=== PATIENT | female | born 1965 | race Caucasian/White ===

== ENCOUNTER 2025-03-20 09:08 | Outpatient (AMB) | payer BC, SELFPAY ==
--- NOTE | 2025-03-20 09:20 | A.OFFVIS_ITS ---
Intake Visit Reasons: 6m sz Allergies Penicillins Allergy (Unknown, Verified 03/20/25 09:25) Unknown prednisone Allergy (Unknown, Verified 03/20/25 09:25) Unknown Sulfa (Sulfonamide Antibiotics) Allergy (Unknown, Verified 03/20/25 09:25) Unknown Medication List - Last Reconciled 03/20/25 by Amber Agosto CNP divalproex (Depakote) 250 mg PO DAILY fenofibrate 54 mg PO DAILY hydrochlorothiazide 12.5 mg PO DAILY lisinopril 5 mg PO DAILY sertraline 25 mg PO DAILY HPI Comments Details: 60-year-old woman who started having passing out spells as a child and was not diagnosed for a while. At one time, she passed out [place] a [place] and after that, was diagnosed with seizures, and had one witnessed generalized seizure. She was previously treated by Dr. Hilario with Depakote (brand name) 250mg three times a day for over 30 years without any further episodes. She cannot tolerate generic Depakote because it causes significant side effects, including side effects and tremors. No family history of seizures. She was interested in slowing taper off medication. Depakote was reduced from three times a day to twice a day for 6 months starting in 04/2024, and then further reduced to once a day beginning in 09/2024. She was doing okay. She has been taking Depakote 250mg once a day since 09/2024 without any issues. No seizures or spells. Sleep was okay. She works as a CPA and cares for her father who lives with her. She was still interested in tapering off medication completely. [facility] Medical History (Updated 03/20/25 @ 09:22 by Amber Agosto CNP) Hyperlipidemia Hypertension Tremor Review of Systems Const Denies chills, Denies daytime sleepiness, Denies difficulty sleeping, Denies fatigue, Denies fever(s), Denies frequent falls, Denies headache(s), Denies increased appetite, Denies poor appetite, Denies snoring, Denies weakness, Denies weight gain and Denies weight loss Eyes Denies loss of vision ENT Denies vertigo, Denies dizziness, Denies headache(s) and Denies neck pain Card Denies chest pain at rest, Denies chest pain with activity, Denies syncope, Denies leg edema, Denies palpitations, Denies dyspnea and Denies dyspnea on exertion Resp Denies cough, Denies dyspnea, Denies dyspnea on exertion and Denies snoring GI Denies abdominal pain, Denies constipation, Denies heartburn, Denies diarrhea and Denies nausea Denies urinary frequency, Denies urinary incontinence and Denies urinary urgency Musc Denies abnormal gait, Denies back pain, Denies myalgias, Denies arthralgias, Denies neck pain, Denies numbness and Denies tingling Neuro Denies abnormal gait, Denies vertigo, Denies dizziness, Denies syncope, Denies frequent falls, Denies headache(s), Denies lack of coordination, Denies loss of vision, Denies memory loss, Denies numbness, Denies Other visual disturbances, Denies restless legs, Denies seizure-like activity, Denies tingling, Denies paresthesias, Denies tremor(s) and Denies weakness Psych Denies anxiety, Denies depression, Denies auditory hallucinations, Denies memory loss and Denies visual hallucinations Endo Denies fatigue and Denies palpitations Physical Exam Const Other: General Appearance:? normal, in no acute distress. Heart:? S1, S2 normal, no murmurs. Lungs:? clear anteriorly and posteriorly. Musculoskeletal:? normal. Extremities:? no edema. Psych:? alert, oriented, cognitive function intact, cooperative with exam. Neuro Other: Abnormal Neurological Findings:?none.? Mental Status: alert and oriented X 3. Normal attention, orientation, memory, and affect. Cranial Nerves: Pupils are equal, round, and reactive to light. External ocular muscles are intact. Visual neal are full, no ptosis. Face is symmetrical, no facial weakness or droop. Facial sensations are normal. Tongue protrudes in midline. Palate elevates symmetrically. Shoulder shrugging is normal Motor Examination: Normal muscle tone, bulk and strength. No atrophy or fascicu lations. No drift of the extended upper extremities. DTR 2+. Plantars are flexor. Sensory Exam: Normal light touch, temperature, pinprick, vibration, and joint- position sensations. Rhomberg sign is absent. Coordination: No ataxia. No titubation. Gait Exam: Within normal limits. Cerebellar Signs: [id number] is okay. Extrapyramidal System: No tremor, rigidity with normal facial expressions. No bradykinesia. No bradyphrenia. Normal arm swing and posture. No propulsion or retropulsion. Speech: Normal. Results Reviewed Results Reviewed: 03/30/24 EEG- WN Assessment & Plan Assessment & Plan (1) Seizure disorder: Code(s): G40.909 - Epilepsy, unspecified, not intractable, without status epilepticus Category: Medical Plan: She was taking Depakote 250mg 1 tablet daily since 09/2024 without any episodes. She was still interested in stopping medication completely. She has been seizure free for 30+ years. EEG ordered, as last EEG was 1 year ago in 03/2024. As long as EEG is okay, will stop Depakote - risk vs benefits reviewed, and advised to contact office for any new/worsening symptoms. Will contact patient once EEG done with results. Follow up in 4 months or sooner as needed. Orders: Orders EEG Routine Today G40.909 - Epilepsy, unspecified, not intractable, without status epilepticus Coding Level of Care Code Est Pt Level 4 (41596) Diagnoses Seizure disorder G40.909
--- OUTSIDE RECORDS SUMMARY | 2025-03-20 10:26 | XMS_ITS ---
Author Name [facility] Organization Unknown Care Team Organization Name Specialty Phone Email Start Date End Da te [facility] ORI BRENNAN Primary Care 02/10/2022 11/22/2023
--- OUTSIDE RECORDS SUMMARY | 2025-03-20 10:26 | XMS_ITS | Clinical Summary ---
Author Organization [facility] [address] [facility] lding Address [address] [facility] [place] [address] Phone Care Team Providers Care Ecosystem Ecology Professor Name Role Phone Brook Rachel MD Primary Care Prov ider Allergies Active Allergy Reactions Criticality Noted Date Comments Penicillins 11/27/2005 rash Sulfacetamide Sodium 11/27/2005 rash Medications divalproex (Depakote) [address] tablet tid Active LORazepam (ATIVAN) 0.5 mg tablet Take 1 tablet by mouth every 6 hours as needed for Anxiety for up to 7 days. 04/23/19 22 Active OMEGA-3 FATTY ACIDS-FISH OIL ORAL Take by mouth. Activ e multivitamin,the r and minerals (VITAMINS AND MINERALS ORAL) qd Activ e hydroCHLOROthiaz rose (HYDRODIURIL) 25 mg tabletIndication s:Primary hypertension Take 0.5 tablets (12.5 mg total) by mouth 1 (one) time each day. 45 each 1 09/12/19 25 Active fenofibrate (LOFIBRA) 54 mg tabletIndication s:Pure hypercholesterol emia, unspecified TAKE 1 TABLET BY MOUTH EVERY DAY 90 tablet 1 12/19/19 25 Active sertraline (Zoloft) 25 mg tablet Take 1 tablet (25 mg total) by mouth 1 (one) time each day. 30 each 3 03/14/20 25 Active lisinopriL (PRINIVIL,ZESTRI L) 5 mg tablet Take 1 tablet (5 mg total) by mouth 1 (one) time each day. 90 each 1 03/14/20 25 Active albuterol HFA (PROAIR HFA ; PROVENTIL HFA ; VENTOLIN HFA) 90 mcg/actuation inhaler Take 2 Puffs by mouth every 6 hours as needed for Cough or Wheezing. 03/01/20 19 Discontin ued(Thera py completed ) CALCIUM CITRATE-VITAMIN D3 ORAL Take by mouth. Discontin ued(Thera py completed ) traZODone (DESYREL) 50 mg tablet Take 0.5-1 Tablets by mouth at bedtime as needed for Sleep for up to 28 days. 09/09/19 Discontin ued(Thera py completed ) azelastine (ASTELIN) 137 mcg (0.1 %) nasal spray Administer 1 spray into each nostril 2 (two) times a day. Use in each nostril as directed 30 mL 12 03/13/20 24 Discontin ued(Thera py completed ) polyethylene glycol (Golytely) 236-22.74-6.74 -5.86 gram solution Take 4L by mouth once for one dose. May substitue any PEG. Starting at 2PM the day before your procedure drink 1 8oz glasses at your own pace until you complete half of the gallon. Finish 2nd half of the gallon at 8PM. 4000 mL 11/11/19 25 025 Discontin ued(Thera py completed ) bisacodyL (DULCOLAX) 5 mg EC tablet Take 2 tablets by mouth right before beginning bowel prep. See instructions provided by the office 2 tablet 11/11/19 25 Discontin ued(Thera py completed ) lisinopriL (PRINIVIL,ZESTRI L) 10 mg tablet TAKE 1 TABLET BY MOUTH EVERY DAY 90 tablet 1 12/19/19 25 Discontin ued(Reord er) Active Problems Problem Noted Date Diagnosed Date Simple chronic bronchitis 02/24/2017 Pure hypercholesterolemia 02/20/2008 Elevated glucose 10/24/2007 Essential hypertension, benign 07/22/2006 Obesity, unspecified 11/27/2005 Seizure disorder 11/27/2005 Overview (02/01/2024): Sulaiman yearly Encounters Date Type Department Care Team Description 03/14/2025 9:30 AM EST Office Visit Adult Medicine [place] [address] [place] [address] Brook Holman MD Situational depression (Primary Dx); Essential hypertension, benign; Seizure disorder ([facility] V24, [facility] V28) from Last 3 Months Immunizations Immunization Administration Dates Next Due Influenza Quadravalent, MDCK , 0.5ml, preservative free (Flucelvax) 6mo and older 01/13/2022 Influenza Quadravalent, MDCK , 0.5ml, with preservative (Flucelvax) 6mo and older 01/27/2017 Influenza trivalent, 0.5mL ( Fluad) 65yo and older 01/12/2021 Influenza trivalent, 0.5mL, preservative free (Fluarix; FluLaval; Fluzone) ages 6mo and older (Afluria) 3 years and older 02/12/2024,11/26/2019,01/08/2018,02/23,02/04/2015,12/19/2012,01/22/2012 ,12/15/2010,02/20/2008 Influenza trivalent, MDCK, 0 .5mL, preservative free (Flucelvax) 6mo and older 01/20/2025 [employer] Covid-19 Bivalent, Or iginal + Ba.1 (Non-US Trademark COMIRNATY Bivalent) 02/02/2022 [employer] SARS-CoV-2 COVID-19, mRNA, LNP-S, preservative free 01/12/2021,06/18/2020,05/26/2020 Pneumococcal polysaccharide 23 valent (Pneumovax 23) 2yo and older 02/24/2017 Td Tetanus diptheria (Tdvax) 7yo and older 11/27/2005 Tdap Tetanus diptheria acell ular pertussis (Boostrix; Adacel) 7yo and older 02/28/2018 Zoster Live 02/17/2020 Zoster, Unspecified 04/05/2020 Medical History Medical History Date Comments Other convulsions 11/27/2005 DX:Other convu lsions Obesity, unspecified 11/27/2005 DX:Obesity, unspecified Hypertension Hyperlipidemia Family History Medical History Relation Name Comments CABG Father Heart attack Father Hyperlipidemia Father Hypertension Father Other cancer Father kidney cancer Diabetes Maternal Grandmother Breast cancer Mother 66 Relation Name Status Comments Father Maternal Grandmother Mother Social History Tobacco Use Types Packs/Day Years Used Date Smoking Tobacco: Never Smokeless Tobacco: Never Tobacco Cessation:Counseling Given: Not Answered Alcohol Use Standard Drinks/Week Comments No 0 (1 standard drink = 0.6 oz pur e alcohol) Housing Instability Answer Date Recorde d Are you worried that in the next 2 months you may not have stable housing? Patient declined 09/05/2024 Food Access & Nutrition Answer Date Rec orded Do you have access to a vari ety of food including fruits and vegetables? Patient declined 09/05/2024 Access to Healthcare Answer Date Record ed Within the last 3 months, ho jan many times did you visit the emergency department for your medical care? 0 09/05/2024 Health Literacy Answer Date Recorded How often do you need to hav e someone help you when you read instructions, pamphlets, or other written material from your doctor or pharmacy? Patient declined 09/05/2024 Caregiver: How often do you need to have someone help you when you read instructions, pamphlets, or other written material from your doctor or pharmacy? Not on file 025 Financial Risk Answer Date Recorded How hard is it for you to pa y for the very basics like food, housing, medical care, and air conditioning / heating? Patient declined 09/05/2024 Transportation Answer Date Recorded Has the lack of transportati on kept you from meetings, work, or from getting things needed for daily living? Patient declined 09/05/2024 Has the lack of transportati on kept you from medical appointments or from getting medications? Patient declined 09/05/2024 Social Isolation Answer Date Recorded How often do you feel lonely or isolated from those around you? Patient declined 09/05/2024 Food Risk Answer Date Recorded Within the past 12 months we worried whether our food would run out before we got money to buy more. Patient declined 025 Within the past 12 months th e food we bought just didn't last and we didn't have money to get more. Patient declined 06/2024 Dependent Care Answer Date Recorded Do you need help finding or paying for care for your loved ones. For example, child care associate teacher or elderly care for an older adult? Patient declined 09/05/2024 Education Answer Date Recorded Do you think completing more education or training, like finishing a GED, going to college, or learning a trade, would be helpful for you? Patient declined 09/05/2024 Employment and Income Answer Date Recor ded During the last four weeks, have you been actively looking for work? Patient declined 09/05/2024 Living Situation Answer Date Recorded What is your living situation? Unrecognized valu e 09/05/2024 Interpersonal Safety Answer Date Record ed Physical Abuse Unrecognized value 11/24/2024 Verbal Abuse Unrecognized value 11/24/2024 Comments No Sex and Gender Information Value Date Recorded Sex Assigned at Not on file Legal Sex Female 9:50 PM EST Gender Identity Not on file Sexual Orientation Not on file Last Filed Vital Signs Vital Sign Reading Time Taken Comments Blood Pressure 108/66 03/14/2025 9:27 AM EST Pulse 56 03/14/2025 9:27 AM EST Temperature 36.2 C (97.2 F) 11/24/2024 12:30 PM EDT Respiratory Rate 12 11/24/2024 12:50 PM EDT Oxygen Saturation 98% 11/24/2024 12:50 PM EDT Inhaled Oxygen Concentration - - Weight 69.2 kg (152 lb 9.6 oz) 03/14/2025 9:27 A M EST Height 149.9 cm (4' 11 ) 03/14/2025 9:27 AM EST Body Mass Index 30.82 03/14/2025 9:27 AM EST Plan of Treatment Upcoming Encounters Date Type Department Care Team (Late st Contact Info) Description 04/25/2025 9:30 AM EST Office Visit Adult Medicine - [place] [address] [place] [phone] Brook Rachel MD [address] [place] [address] Health Maintenance Due Date Last Done Comments Breast Cancer Screening 1965 Drug Screen 1965 Non-Opioid Controlled Substance Agreement 1965 Pneumococcal Vaccine: 50+ Years (2 of 2 - PCV) 02/24/2018 02/24/2017 COVID-19 Vaccine (6 - season) 2024 02/12/2024, 01/25/2023, 01/12/2021, Additional history exists Hypertension/CHF/CAD Annual BMP Blood Test 03/22/2025 03/22/2024, 09/03/2023, 09/03/2023 Cervical Cancer Screening: HPV 2027 2022 DTaP,Tdap,and Td Vaccines (3 - Td or Tdap) 02/29/2028 02/28/2018, 11/27/2005 Cholesterol Screening (Lipid Panel) 03/22/2029 03/22/2024, 09/03/2023, 09/03/2023 Colorectal Cancer Screening: Colonoscopy 11/24/2034 11/24/2024, 04/05/2014 RSV Immunization Adult Patients (1 - 1-dose 75+ series) 2038 Hepatitis C Screening Completed 07/22/2012 Zoster Vaccines Completed 04/05/2020, 02/03, 12/02/2019 Social Influencers of Health Screening Discontinued 09/05/2024 Influenza Vaccine Completed 01/20/2025, , 01/25/2023, Additional history exists Depression Screening Completed 03/14/2025 HIB Vaccines Aged Out No longer eligi ble based on patient's age to complete this topic HIV Screening Discontinued HPV Vaccines Aged Out No longer eligi ble based on patient's age to complete this topic Hepatitis A Vaccines Aged Out No long er eligible based on patient's age to complete this topic Hepatitis B Vaccines Aged Out No long er eligible based on patient's age to complete this topic IPV Vaccines Aged Out No longer eligi ble based on patient's age to complete this topic MMR Vaccines Aged Out No longer eligi ble based on patient's age to complete this topic Meningococcal ACWY Vaccine Aged Out N o longer eligible based on patient's age to complete this topic Meningococcal B Vaccine Aged Out No l onger eligible based on patient's age to complete this topic RSV Immunization Patients Under 20 months Aged Out No longer eligible based on patient's age to complete this topic Varicella Vaccines Aged Out No longer eligible based on patient's age to complete this topic Procedures Procedure Name Priority Date/Time Associated Diagnosis Comments COLONOSCOPY Routine 11/24/2024 12:29 PM EDT Colon cancer screening COMPREHENSIVE METABOLIC PANEL Routine 03/22/2024 8:35 AM EST Pure hypercholesterolemia LIPID PANEL WITH REFLEX TO DIRECT LDL Routine 03/22/2024 8:35 AM EST Pure hypercholesterolemia HM HPV Routine 2022 HEPATITIS C SCREENING Routine 07/22/2012 from Last 3 Months or Most Recently Relevant to Health Maintenance Results * COLONOSCOPY Anesthesia - MAC; [facility] ENDOSCOPY (11/24/2024 12:29 PM EDT) Anatomical Region Laterality Modality Endoscopy 11/24/2024 12:0 5 PM EDT Impressions 11/24/2024 12:29 PM EDT - The examined portion of the ileum was normal. - Internal hemorrhoids. - The entire examined colon is normal. - No specimens collected. Recommendation: - Repeat colonoscopy in 10 years for screening purposes. Narrative 11/24/2024 12:29 PM EDT [facility] Patient Name: Jerome Verdugo Procedure Date: 11/24/2024 12:05 PM Date of : 1965 Age: 59 Gender: Female Note Status: Finalized Attending MD: Vicki Merritt MD, Procedure Date No Time: 11/24/2024 Procedure: Colonoscopy Indications: Screening for colorectal malignant neoplasm Providers: Vicki Merritt MD Referring MD: Brook Rachel MD Medicines: Propofol per Anesthesia Complications: No immediate complications. Estimated Blood Loss: Estimated blood loss: none. Procedure: Pre-Anesthesia Assessment: - ASA Grade Assessment: II - A patient with mild systemic disease. After I obtained informed consent, the scope was passed under direct vision. Throughout the procedure, the patient's blood pressure, pulse, and oxygen saturations were monitored continuously.The Colonoscope was introduced through the anus and advanced to the terminal ileum. The colonoscopy was performed without difficulty. The patient tolerated the procedure well. The quality of the bowel preparation was excellent. Findings: The perianal and digital rectal examinations were normal. The terminal ileum appeared normal. Internal hemorrhoids were found during retroflexion. The hemorrhoids were Grade I (internal hemorrhoids that do not prolapse). The entire examined colon appeared normal. Procedure Code(s): --- Professional --- G0121, Colorectal cancer screening; colonoscopy on individual not meeting criteria for high risk Diagnosis Code(s): --- Professional --- Z12.11, Encounter for screening for malignant neoplasm of colon CPT copyright 2020 [employer]. All rights reserved. The codes documented in this report are preliminary and upon office machine mechanic review may be revised to meet current compliance requirements. Vicki Merritt MD 11/24/2024 12:29:46 PM This report has been signed electronically.Vicki Merritt MD Number of Addenda: 0 Note Initiated On: 11/24/2024 12:05 PM Scope In: Scope Out: Endoscopy Department at [facility] - [address] [place] [id number] Procedure Note Vicki Merritt MD - 11/24/2024 [facility] Patient Name: Jerome Verdugo Procedure Date: 11/24/2024 12:05 PM Date of : 1965 Age: 59 Gender: Female Note Status: Finalized Attending MD: Vicki Merritt MD, Procedure Date No Time: 11/24/2024 Procedure: Colonoscopy Indications: Screening for colorectal malignant neoplasm Providers: Vicki Merritt MD Referring MD: Brook Rachel MD Medicines: Propofol per Anesthesia Complications: No immediate complications. Estimated Blood Loss: Estimated blood loss: none. Procedure: Pre-Anesthesia Assessment: - ASA Grade Assessment: II - A patient with mild systemic disease. After I obtained informed consent, the scope was passed under direct vision. Throughout theprocedure, the patient's blood pressure, pulse, and oxygen saturations were monitored continuously.The Colonoscope was introduced through the anus and advanced to the terminal ileum. The colonoscopy was performed without difficulty. The patient tolerated the procedure well. The quality of the bowel preparation was excellent. Findings: The perianal and digital rectal examinations were normal. The terminal ileum appeared normal. Internal hemorrhoids were found duringretroflexion. The hemorrhoids were Grade I (internal hemorrhoids that do not prolapse). The entire examined colon appeared normal. Procedure Code(s): --- Professional --- G0121, Colorectal cancer screening; colonoscopy on individual not meeting criteria for high risk Diagnosis Code(s): --- Professional --- Z12.11, Encounter for screening for malignantneoplasm of colon CPT copyright 2020 [employer]. All rights reserved. The codes documented in this report are preliminary and upon office machine mechanic reviewmay be revised to meet current compliance requirements. Vicki Merritt MD 11/24/2024 12:29:46 PM This report has been signed electronically.Vicki Merritt MD Number of Addenda: 0 Note Initiated On: 11/24/2024 12:05 PM Scope In: Scope Out: Endoscopy Department at [facility] - [address] [place] [id number] IMPRESSION: - The examined portion of the ileum was normal. - Internal hemorrhoids. - The entire examined colon is normal. - No specimens collected. Recommendation: - Repeat colonoscopy in 10 years for screening purposes. Vicki Merritt MD GI~PROCEDURE ORDERABLES Final Result * Lipid panel with reflex to direct LDL (03/22/2024 8:35 AM EST) Cholesterol 181 0 - 200 mg/dL LAB CHEMISTRY METHOD 03/22/2024 1:15 PM EST [facility] Triglycerides 149 0 - 150 mg/dL LAB CHEMISTRY METHOD 03/22/2024 1:15 PM EST [facility] HDL 59 >=40 mg/dL LAB CHEMISTRY METHOD 03/22/2024 1:15 PM EST [facility] LDL Calculated 92 0 - 100 mg/dL LAB CHEMISTRY METHOD 03/22/2024 1:15 PM EST [facility] VLDL Cholesterol Bradly 29.8 mg/dL LAB CHEMISTRY METHOD 03/22/2024 1:15 PM [facility] Non HDL Chol. (LDL+VLDL) 122 <145 mg/dL LAB CHEMISTRY METHOD 03/22/2024 1:15 PM [facility] Chol/HDL Ratio 3.1 0.0 - 4.4 LAB CHEMISTRY METHOD 03/22/2024 1:15 PM [facility] Blood Venous blood specimen / Unknown Venipuncture / Unknown 03/22/2024 8:35 AM EST 03/22/2024 8:35 AM EST us Brook Rachel MD LAB BLOOD ORDERABL ES Final Result [facility] [address] [place] [address], * Comprehensive metabolic panel (03/22/2024 8:35 AM EST) Sodium 137 133 - 145 mmol/L LAB CHEMISTRY METHOD 03/22/2024 1:15 PM [facility] Potassium 4.1 3.5 - 5.5 mmol/L LAB CHEMISTRY METHOD 03/22/2024 1:15 PM [facility] Chloride 102 96 - 110 mmol/L LAB CHEMISTRY METHOD 03/22/2024 1:15 PM [facility] CO2 28 21 - 32 mmol/L LAB CHEMISTRY METHOD 03/22/2024 1:15 PM [facility] Anion Gap 7 3 - 11 LAB CHEMISTRY METHOD 03/22/2024 1:15 PM [facility] Glucose 96 70 - 100 mg/dL LAB CHEMISTRY METHOD 03/22/2024 1:15 PM [facility] BUN 25 5 - 25 mg/dL LAB CHEMISTRY METHOD 03/22/2024 1:15 PM [facility] Creatinine 0.83 0.50 - 1.10 mg/dL LAB CHEMISTRY METHOD 03/22/2024 1:15 PM [facility] eGFR 80 >=60 mL/min/1. 73m2 LAB CHEMISTRY METHOD 03/22/2024 1:15 PM [facility] Comment:Calculation based on the Chronic Kidney Disease Epidemiology Collaboration (CKD-EPI) equation refit without adjustment for race. BUN/Creatinine Ratio 30.1 LAB CHEMISTRY METHOD 03/22/2024 1:15 PM [facility] Calcium 10.4 8.5 - 10.5 mg/dL LAB CHEMISTRY METHOD 03/22/2024 1:15 PM [facility] AST (SGOT) 18 10 - 42 unit/L LAB CHEMISTRY METHOD 03/22/2024 1:15 PM [facility] ALT (SGPT) 25 10 - 60 unit/L LAB CHEMISTRY METHOD 03/22/2024 1:15 PM [facility] Alkaline Phosphatase 49 42 - 121 unit/L LAB CHEMISTRY METHOD 03/22/2024 1:15 PM [facility] Total Protein 7.0 6.0 - 8.0 g/dL LAB CHEMISTRY METHOD 03/22/2024 1:15 PM [facility] Albumin 4.0 3.2 - 5.0 g/dL LAB CHEMISTRY METHOD 03/22/2024 1:15 PM [facility] Total Bilirubin 0.5 0.0 - 1.4 mg/dL LAB CHEMISTRY METHOD 03/22/2024 1:15 PM [facility] Blood Venous blood specimen / Unknown Venipuncture / Unknown 03/22/2024 8:35 AM EST 03/22/2024 8:35 AM EST us Brook Rachel MD LAB BLOOD ORDERABL ES Final Result [facility] [address] [place] [address], * Cervical Cancer Screening: HPV (2022) Cervical Cancer Screening: HPV no interpreta tion,abstr acted Historical Provider HEALTH MAINTENANCE Final Result * Hepatitis C Screening (07/22/2012) Hepatitis C Screening abstracted Historical Provider HEALTH MAINTENANCE Final Result from Last 3 Months or Most Recently Relevant to Health Maintenance Insurance [facility] Care Teams Ecosystem Ecology Professor Relationship Specialty Start Date End Date Brook Rachel MD [address] [place] [id number] PCP - General 05/16/10
== END 2025-03-20 09:35 | disposition home or self-care (01) ==
LOC: HO.HSM 09:09
PROVIDERS: PCP Internal Medicine; Referring Provider Internal Medicine; Visit Provider Registered Nurse
DX: G40.909 Epilepsy, unspecified, not intractable, without status epilepticus (principal)
CPT/HCPCS: 99214